=== PATIENT | female | born 1970 | race Caucasian/White ===

== ENCOUNTER → 2016-09-22 | Outpatient (CLI) | payer OTHER ==
--- NOTE | 2016-09-22 12:55 | DI ---
XR KNEE CMPT 4 OR MORE VWS,09/22/2016 10:25 AM: Clinical History: Knee pain of unspecified chronicity. Previous Exam: None at this facility. Findings: AP, lateral, oblique and sunrise views of both knees are obtained, and demonstrate anatomic alignment without fractures. There is mild enthesopathy noted on the undersurface of the patella. The surrounding soft tissues are unremarkable. Impression: Mild degenerative changes without evidence of fracture.
== END ==
LOC: ORTHO 10:39
PROVIDERS: ATTEND Orthopaedic Surgery
DX: M25.561 Pain in right knee (principal); M25.461 Effusion, right knee; M25.562 Pain in left knee; M17.0 Bilateral primary osteoarthritis of knee; S83.31XA Tear of articular cartilage of right knee, current, initial encounter
CPT/HCPCS: 73564